=== PATIENT | female | born 1990 | race African-American/Black ===

== ENCOUNTER 2021-06-09 03:09 | Emergency (ER) | payer OTHER ==
[~2021-06-09] VITALS: Ht 170.2 cm; Wt 117.9 kg
--- NOTE | 2021-06-09 03:20 | NUR ---
pt brought in to room 2a for aloc by [facility] and lapd. pt yelling screaming out.
--- NOTE | 2021-06-09 03:27 | NUR ---
Dr. Rajan at bedside for MSE.
[2021-06-09] MEDS ORDERED: diphenhydrAMINE 50 MG/1 ML VIAL IM ONE (03:30)
[2021-06-09] MEDS ORDERED: HALOPERIDOL LACTATE 5 MG/1 ML VIAL IM ONE ×2 (03:30→04:30)
[2021-06-09] MEDS ORDERED: LORAZEPAM 2 MG/1 ML VIAL IM ONE (03:30)
[2021-06-09] MEDS ORDERED: diphenhydrAMINE 50 MG/1 ML VIAL ONE (03:45)
[2021-06-09] MEDS ORDERED: HALOPERIDOL LACTATE 5 MG/1 ML VIAL ONE ×2 (03:45→04:38)
[2021-06-09] MEDS ORDERED: LORAZEPAM 2 MG/1 ML VIAL ONE (03:46)
[2021-06-09 04:15] LABS: MEAN CORPUSCULAR HEMOGLOBIN 29.9 uug (24.7-32.8); MEAN CORPUSCULAR VOLUME 87.7 fL (75.5-95.3); PLATELET COUNT (AUTO) 306 K/uL (179-408)
[2021-06-09 04:17] LABS: NEUTROPHILS % (MANUAL) 0 % (42-75)
[2021-06-09 04:19] LABS: CARBON DIOXIDE 30 mmol/L (21-32); CHLORIDE 98 mmol/L (98-107); GLUCOSE 96 mg/dL (74-106); POTASSIUM 3.1 mmol/L (3.5-5.1); UREA NITROGEN, BLOOD 15 mg/dL (7-18)
[2021-06-09 04:25] LABS: ALANINE AMINOTRANSFERASE 62 U/L (14-59); ALKALINE PHOSPHATASE 67 U/L (50-136); ASPARTATE AMINOTRANSFERASE 65 U/L (15-37); BILIRUBIN,DIRECT 0.1 mg/dL (0.0-0.2); BILIRUBIN,TOTAL 0.5 mg/dL (0.2-1.0); TOTAL PROTEIN, SERUM 8.2 g/dL (6.4-8.2)
[2021-06-09 04:30] LABS: ACETAMINOPHEN < 2.0 ug/mL (10-30); ETHANOL < 3 MG/DL (0-0)
[2021-06-09] MEDS ORDERED: POTASSIUM BICARBONATE/CIT AC 25 MEQ TABLET.EFF PO ONE (04:45)
--- NOTE | 2021-06-09 05:30 | NUR ---
Female information security officer Iram was security control room officer for insertion of ferrer catheter to obtain urine sample for drugs of abuse screen.
--- NOTE | 2021-06-09 06:12 | NUR ---
Dr. Rajan aware pt is not awake enough or coherent to take po K[place].
[2021-06-09 06:13] LABS: *BILIRUBIN,URIN NEGATIVE (NEGATIVE); *BLOOD, URINE NEGATIVE (NEGATIVE); *CLARITY,URINE CLEAR (CLEAR); *COLOR,URINE YELLOW (YELLOW); *KETONES,URINE 2+ (NEGATIVE); *UROBILINOGEN,URINE 0.2 E.U./dl (NORMAL); LEUKOCYTE ESTERASE ,URINE NEGATIVE (NEGATIVE); NITRITE, URINE NEGATIVE (NEGATIVE); UGLUCOSE NEGATIVE (NEGATIVE)
[2021-06-09 06:20] LABS: *AMPHETAMINE, URINE POSITIVE (NEGATIVE); *CANNABINOID, URINE NEGATIVE (NEGATIVE); *COCCAINE, URINE NEGATIVE (NEGATIVE); *OPIATE, URINE NEGATIVE (NEGATIVE); *PHENCYCLIDINE SCREEN,URINE NEGATIVE (NEGATIVE); BACTERIA,URINE FEW /HPF (NONE SEEN); RBC,URINE 0-3 /HPF (0-3); SQUAMOUS EPITHELIAL CELL,UR NONE SEEN /HPF (NONE SEEN); WBC,URINE 0-3 /HPF (0-3)
--- NOTE | 2021-06-09 07:30 | NUR ---
PATIENT RECEIVED IN BED NO S/S ANY DISTRESS.
--- NOTE | 2021-06-09 09:30 | NUR ---
PATIENT IN BED ASLEEP.
[2021-06-09] MEDS ORDERED: POTASSIUM BICARBONATE/CIT AC 25 MEQ TABLET.EFF ONE (14:10)
[2021-06-09 21:06] LABS: *URINE HCG, QUAL NEGATIVE (NEGATIVE)
--- NOTE | 2021-06-09 21:50 | NUR ---
Pt out of ER for CT.
--- NOTE | 2021-06-09 22:03 | NUR ---
Pt back to ER from CT.
--- NOTE | 2021-06-10 11:00 | NUR ---
Patient is resting comfortably in bed with eyes closed
--- NOTE | 2021-06-10 12:00 | NUR ---
Patient is resting comfortably in bed with eyes closed
--- NOTE | 2021-06-10 13:00 | NUR ---
PATIENT WAS SEEN BY VISH TONEY [facility] PET TEAM FOR EVAL. PATIENT HOLD WAS D/C.
--- NOTE | 2021-06-10 13:25 | NUR ---
Patient discharged to home in stable condition. Written and verbal after care instructions given. Patient verbalizes understanding of instructions. Stressed follow up or return to ER for worsening s/s.
--- NOTE | 2021-06-10 13:26 | NUR ---
Patient given written and verbal discharge instructions. Patient verbalizes understanding of instructions. Patient is ambulatory with steady gait. Refuses offer of correction placement. Patient given list of available shelters in surrounding area.
[2021-06-10 13:27] VITALS: BP 133/79
== END 2021-06-10 13:30 | disposition home or self-care (01) ==
LOC: ER 03:12
DX: F23 Brief psychotic disorder (principal); F15.121 Other stimulant abuse with intoxication delirium; U07.1 COVID-19; E87.6 Hypokalemia; R74.01 Elevation of levels of liver transaminase levels; R00.0 Tachycardia, unspecified; Z78.1 Physical restraint status
CPT/HCPCS: 36415; 51702; 70450; 80048; 80076; 80299; 80307; 80320; 81001; 83605; 84703; 85007; 85025; 87426; 93005; 96372 ×2; 99285; J1200; J1630 ×2; J2060; 70030-TC; A4663; G0480